=== PATIENT | female | born 1950 | race Caucasian/White ===

== ENCOUNTER 2020-12-23 17:43 | Inpatient (IN) | payer MEDICARE, OTHER ==
[~2020-12-23] VITALS: Ht 162.5 cm; Wt 49.5 kg
[2020-12-23] MEDS ORDERED: ANTACID SUSP 30 ML UDC (MYLANTA) PO PRN (22:00)
[2020-12-23] MEDS ORDERED: ACETAMINOPHEN 325 MG TABLET PO PRN (22:00)
[2020-12-23] MEDS ORDERED: polyethylene glycoL POWDER 17 GM (MIRALAX) PACK PO PRN (22:00)
[2020-12-23] MEDS ORDERED: ONDANSETRON 4 MG (ZOFRAN) ORAL DISSOLVE TAB PO PRN (22:00)
[2020-12-23] MEDS ORDERED: ONDANSETRON 4 MG/2 ML (SDV) Z0FRAN IV PRN (22:00)
[2020-12-23] MEDS ORDERED: MELATONIN 3 MG TABLET PO PRN (22:00)
[2020-12-23] MEDS ORDERED: BISACODYL 10 MG SUPP (DULCOLAX) PR PRN (22:00)
[2020-12-23 22:35] VITALS: BP 149/87
[2020-12-23] MEDS ORDERED: LEFL20TA18 PO (23:13)
[2020-12-23] MEDS ORDERED: OXCA600T10 PO (23:13)
[2020-12-23] MEDS ORDERED: [UNRECOGNIZED DRUG - CODE] PO (23:13)
[2020-12-23] MEDS ORDERED: LIOT5TAB10 PO (23:13)
[2020-12-23] MEDS ORDERED: LEVO100T7 PO (23:13)
[2020-12-23] MEDS ORDERED: POLY15DR27 OP (23:13)
[2020-12-23] MEDS ORDERED: HYDR200T46 PO (23:13)
[2020-12-23] MEDS ORDERED: ENOXAPARIN 30 MG/0.3 ML (LOVENOX) SYR SC SCH (23:30)
[2020-12-24 00:01] VITALS: BP 148/89
[2020-12-24 03:40] VITALS: BP 124/78
[2020-12-24 05:51] LABS: BASOPHILS % (AUTO) 0 % (0-10); EOSINOPHILS % (AUTO) 0 % (0-10); HEMATOCRIT 39 % (35-52); HEMOGLOBIN 12.9 g/dL (11.5-16.0); LYMPHOCYTES # (AUTO) 0.9 10^3/uL (1.0-4.0); LYMPHOCYTES % (AUTO) 18 % (12-44); MEAN CORPUSCULAR HEMOGLOBIN 32 pg (25-34); MEAN CORPUSCULAR HGB CONC 33 g/dL (32-36); MEAN CORPUSCULAR VOLUME 96 fL (80-99); MEAN PLATELET VOLUME 11.4 fL (9.0-12.2); MONOCYTES # (AUTO) 0.6 10^3/uL (0.0-1.0); MONOCYTES % (AUTO) 12 % (0-12); NEUTROPHILS # (AUTO) 3.4 10^3/uL (1.8-7.8); NEUTROPHILS % (AUTO) 69 % (42-75); PLATELET COUNT 155 10^3/uL (130-400); WHITE BLOOD COUNT 4.9 10^3/uL (4.3-11.0)
[2020-12-24 06:06] LABS: POTASSIUM 3.7 MMOL/L (3.6-5.0)
[2020-12-24 06:08] LABS: CALCIUM 9.3 MG/DL (8.5-10.1)
[2020-12-24 06:12] LABS: CREATININE SERUM 0.81 MG/DL (0.60-1.30)
[2020-12-24 07:28] VITALS: BP 130/84
[2020-12-24] MEDS: ASPIRIN 81 MG CHEW (CHILDREN'S ASA) PO SCH (08:34)
[2020-12-24] MEDS: LEVOTHYROXINE 100 MCG (LEVOTHROID) TAB PO SCH (08:34)
[2020-12-24] MEDS: SENNOSIDES 8.6 MG (SENOKOT) TAB PO SCH ×2 (08:34→21:21)
[2020-12-24] MEDS: DOCUSATE SODIUM 100 MG (COLACE) CAP PO SCH ×2 (08:34→21:21)
[2020-12-24] MEDS: HYDROXYCHLOROQUINE 200 MG (PLAQUENIL) TAB PO SCH (08:34)
[2020-12-24] MEDS: OXcarbazepine (TRILEPTAL) 300 MG TAB PO SCH ×2 (08:35→21:22)
[2020-12-24] MEDS ORDERED: PATIENT MAY USE OWN MED,SINGLE MED PO SCH (08:45)
[2020-12-24] MEDS: LIOTHYRONINE 5 MCG (CYTOMEL) TAB NON-FORMULARY PO SCH (09:27)
[2020-12-24] MEDS: PILOCARPINE 7.5 MG PO SCH ×3 (09:28→21:22)
[2020-12-24] MEDS: LEFLUNOMIDE 20 MG PO SCH (09:28)
--- NOTE | 2020-12-24 09:28 | History & Physical-Hospitalist ---
History of Present Illness HPI/Chief Complaint Rosemarie Hatch is a 70-year-old female with past medical history of rheumatoid arthritis, Sjogren's, chronic immunosuppression, seizure disorder, who presented with chest pain. She reports that she was having pressure in her chest. She was also having pain in her teeth which she thought was related to a sinus infection. She denies any nausea or vomiting. She denies any shortness of breath. She did have pleuritic chest pain. She says the pain was also worse with bending forward. She has not had any cough. She denies diaphoresis. She is currently chest pain-free. She denies fevers and chills. She denies a bdominal pain. She denies diarrhea. She denies dysuria. She does have a family history of coronary artery disease. Her father had several heart attacks. Her mother of a a heart attack at around 70 years old. Her sister of a heart attack at 80 years old. She has no personal history of coronary artery disease. Source: patient Exam Limitations: no limitations Date Seen 12/24/20 Time Seen by a Provider: 07:35 Attending Physician Norma Sy MD PCP No,Local Physician Referring Physician Date of Admission Dec 23, 2020 at 22:33 Home Medications & Allergies Home Medications Reviewed patient Home Medication Reconciliation performed by pharmacy medication reconciliations computer operations technician and/or nursing. Patients Allergies have been reviewed. Allergies Allergies Coded Allergies No Allergy Information Available (Unverified12/23/20) Past Gjfuwxh-Zdncug-Xlnepq Hx Patient Social History Tobacco Use?: No Substance use?: No Alcohol Use?: No Pt feels they are or have been: No Immunizations Up To Date Second COVID19 Vaccination Florencio: JULY Current Status Advance Directives: No Communicates: Verbally Primary Language: Croatian Preferred Spoken Language: Croatian Is interpretation needed?: No Sensory deficits: Vision impairment Implanted or Applied Medical D: None Family Medical History Heart Disease, CAD Over 55 Years Old Review of Systems Constitutional: no symptoms reported EENTM: other (Jaw pain) Respiratory: no symptoms reported Cardiovascular: chest pain Gastrointestinal: no symptoms reported Genitourinary: no symptoms reported Musculoskeletal: no symptoms reported Skin: no symptoms reported Psychiatric/Neurological: No Symptoms Reported Physical Exam Physical Exam Vital Signs Vital Signs - First Documented 12/24/20 00:01 Temp 36.2 Capillary Refill : Height, Weight, BMI Height: '" Weight: lbs. oz. kg; 18.74 BMI Method: General Appearance: No Apparent Distress, Thin HEENT: PERRL/EOMI, Pharynx Normal Neck: Normal Inspection, Supple Respiratory: Lungs Clear, Normal Breath Sounds, No Respiratory Distress Cardiovascular: Regular Rate, Rhythm, No Edema, No Murmur Gastrointestinal: Normal Bowel Sounds, Non Tender, Soft Extremity: Normal Inspection, Non Tender, No Pedal Edema Neurologic/Psychiatric: Alert, Oriented x3, No Motor/Sensory Deficits, Normal Mood/Affect Skin: Normal Color, Warm/Dry Lymphatic: No Adenopathy Results Results/Procedures Labs Laboratory Tests 12/24/20 05:04 Patient resulted labs reviewed. Imaging: Reviewed Imaging Report Assessment/Plan Admission Diagnosis Chest pain Admission Status: Observation Assessment and Plan Chest pain Elevated troponin Family history of coronary artery disease Elevated blood pressure No history of CAD or HTN Troponin elevated at outside facility Troponin elevated on arrival No further chest pain Given ASA Begin Metoprolol Lipid panel within normal limits Consider statin Cardiology consulted, appreciate assistance May need further evaluation with left heart catheterization, await recommendations NPO Rheumatoid arthritis Sjogren's syndrome Seizure disorder Continue home meds DVT prophylaxis: Lovenox Diagnosis/Problems Diagnosis/Problems (1) Chest pain Status: Acute (2) Family history of coronary artery disease (3) Elevated troponin Status: Acute (4) Elevated blood pressure reading Status: Acute (5) Rheumatoid arthritis Status: Chronic (6) Sjogrens syndrome Status: Chronic (7) Seizure disorder Status: Chronic NORMA SY MD Dec 24, 2020 09:28
--- NOTE | 2020-12-24 09:44 | Physical Therapy Evaluation ---
PT Evaluation-General Medical Diagnosis Admission Date Dec 23, 2020 at 22:33 Medical Diagnosis: Chest pain Onset Date: Dec 23, 2020 Therapy Diagnosis Therapy Diagnosis: Generalized Weakness Precautions Precautions/Isolations: Standard Precautions Referral Physician: Dr. Avalos Reason for Referral: Evaluation/Treatment Medical History Reviewed History: Yes Social History Home: [facility] Current Living Status: Significant Other Entry Into Home: Stairs With Railing PT Steps Into Home: 5 PT Steps Inside Home: 14 Prior Prior Level of Function SCALE: Activities may be completed with or without assistive devices. 5-Yfevtdoeme-ofopfus completes the activity by him/herself with no assistance from a helper. 5-Set-up or Clean-up Assistance-helper sets up or cleans up; patient completes activity. Charlotte assists only prior to or following the activity. 4-Supervision or Touching Assistance-helper provides verbal cues and/or touching/steadying and/or contact guard assistance as patient completes activity. Assistance may be provided throughout the activity or intermittently. 3-Partial/Moderate Assistance-helper does LESS THAN HALF the effort. Charlotte lifts, holds or supports trunk or limbs, but provides less than half the effort. 2-Substantial/Maximal Assistance-helper does MORE THAN HALF the effort. Charlotte lifts or holds trunk or limbs and provides more than half the effort. 2-Blwixmhbl-owrvfa does ALL the effort. Patient does none of the effort to complete the activity. Or, the assistance of 2 or more helpers is required for the patient to complete the activity. If activity was not attempted, code reason: 7-Patient Refused. 9-Not Applicable-not attempted and the patient did not perform the activity before the current illness, exacerbation or injury. 10-Not Attempted due to Environmental Limitations-(lack of equipment, weather restraints, etc.). 88-Not Attempted due to Medical Conditions or Safety Concerns. Bed Mobility: 6 Transfers (B,C,W/C): 6 Gait: 6 Stairs: 6 Wheelchair Mobility: 88 Indoor Mobility (Ambulation): Independent Prior Device Use: None PT Evaluation-Current Subjective Patient reports she had trouble breathing yesterday and went to Urgent Care. Reports the blood tests revealed high enzyme levels and she was admitted to the hospital. Patient currently in no pain, reports no symptoms, and has been ambulating to the bathroom without any difficulty or assistance. Objective Patient Orientation: Person, Place, Time, Situation Attachments: IV Integumentary/Posture Bowel Incontinence: No Bladder Incontinence: No Neuromuscular (Tone, Coordination, Reflexes) Coordination intact and symmetrical bilaterally to all tests. Sensory Sensation Right Lower Extremit: Intact Sensation Left Lower Extremity: Intact Transfers Roll Left to Right (QC): 6 Sit to Lying (QC): 6 Lying to Sitting/Side of Bed(Q: 6 Sit to Stand (QC): 6 Chair/Fjz-vg-Iuyey Xfer(QC): 6 Toilet Transfer (QC): 6 Car Transfer (QC): 88 Gait Does the Patient Walk?: Yes Mode of Locomotion: Walk Anticipated Mode of Locomotion: Walk Walk 10 feet (QC): 6 Walk 50 ft with 2 Turns(QC): 6 Walk 150 ft (QC): 5 Distance: 250 feet Gait Assistive Device: None Comments/Gait Description Patient ambulates 250 feet with no Assistive device, with Supervision, and no apparent gait deficit. She does not report any symptoms with gait, no shortness of breath, chest pain, nor dizziness. Wheelchair Training Does the Pt Use a Wheelchair?: No Wheel 50 ft with 2 turns (QC): 88 Wheel 150 ft (QC): 88 Type of Wheelchair: N/A Stairs #of Steps: 0 1 Step (curb) (QC): 88 4 Steps (QC): 88 12 Steps (QC): 88 Balance Sitting Static: Normal Sitting Dynamic: Normal Standing Static: Normal Standing Dynamic: Good Picking up an Object (QC): 6 Assessment/Needs Rehab Potential: Good Equipment Needs None at this time. PT Short Term Goals Short Term Goals No further PT warranted at this time. No goals established. PT Environmental Health And Safety Manager Goals Usp Goals No further PT warranted at this time. No goals established. PT Plan Problem List None at this time. Treatment/Plan Treatment Plan: Discontinue PT Treatment Duration: Feb 25, 2021 Frequency: No further PT warranted at this time. Safety Risks/Education Patient Education: Gait Training, Transfer Techniques, Safety Issues Teaching Recipient: Patient, Family Teaching Methods: Demonstration, Discussion Response to Teaching: Verbalize Understanding, Return Demonstration Discharge Recommendations Plan Patient will be D/C from PT treatment as she does not require skilled Physical Therapy intervention at this time. If new problems or limitations arise patient will be re-evaluated upon receipt of physician. Time/GCodes Time In: 910 Time Out: 945 Total Billed Treatment Time: 35 Total Billed Treatment Visit, PT Lashawn michelle JOHN A PT Dec 24, 2020 09:44
[2020-12-24 11:14] VITALS: BP 137/86
--- NOTE | 2020-12-24 11:26 | Occ Therapy Progress Note ---
Therapy Progress Note OT orders received and chart reviewed. OT visited with pt who indicates she is currently independent with ADLs and functional mobility. Per PT viviana, pt independent with functional mobility. Pt has no concerns with her ability to complete ADLs upon returning home and feels like she is at her PLOF. No skilled OT services indicated at this time, as pt is independent with ADLs and at PLOF. D/C from OT. 1, visit 1105 CHRIS CRUZ OT Dec 24, 2020 11:26
[2020-12-24] MEDS ORDERED: NITROGLYCERIN 0.4 MG SL TABS BTL 25'S SL ONE (11:56)
[2020-12-24] MEDS ORDERED: ENOXAPARIN 60 MG/0.6 ML (LOVENOX) SYR SC ONE (14:15)
[2020-12-24] MEDS ORDERED: CLOPIDOGREL 75 MG (PLAVIX) TABLET PO ONE (14:15)
[2020-12-24] MEDS ORDERED: ASPIRIN 81 MG CHEW (CHILDREN'S ASA) PO ONE (14:15)
[2020-12-24] MEDS ORDERED: oxyCODONE/APAP 5/325MG (PERCOCET 5) TABLET PO PRN (14:30)
[2020-12-24] MEDS ORDERED: ACETAMINOPHEN 325 MG TABLET PO PRN (14:30)
[2020-12-24] MEDS ORDERED: NITROGLYCERIN 2% OINT 1 GM UNIT DOSE PACKET TOP SCH (14:30)
--- NOTE | 2020-12-24 14:44 | Consultation-Cardiology ---
HPI-Cardiology Cardiology Consultation: Date of Consultation 12/24/20 Time Seen by a Provider: 14:10 Date of Admission Attending Physician Norma Avalos MD Admitting Physician No,Local Physician Consulting Physician LARISA PRESTON MD, MA, FACP, FACC, FSCAI, CCDS HPI: Chief Complaint: CC: Intermittent jaw discomfort HPI 70 yo woman with intermittent jaw discomfort for the past 2 days. Was seen at her local physician's, sent to ER at [facility], found to have mildly elevated troponin, sent to this hosp, has had some recurrence of symptoms here that have been relieved with s/l NTG. No shortness of breath or palp or syncope or swelling. No n/v/d Review of Systems-Cardiology Review of Systems Constitutional: No malaise, No tiredness, No weight loss, No weight gain Eyes: No vision change Ears/Nose/Throat: No ear discharge, No nasal drainage, No recent hearing loss Respiratory: As described under HPI Cardiovascular: As described under HPI Gastrointestinal: As described under HPI Genitourinary: No dysuria, No hematuria, No urine frequency changes Musculoskeletal: No back pain, No joint pain Skin: No rash, No ulcerations Psychiatric/Neurological: No seizure, No focal weakness, No syncope Hematologic: No bleeding abnormalities KBT-Xtimjy-Xtgvhf Hx Patient Social History Have you traveled recently?: No Alcohol Use?: No Pt feels they are or have been: No Past Medical History PMH As described under Assessment. Family Medical History Family History: Coronary artery disease Allergies and Home Medications Allergies Coded Allergies: No Allergy Information Available (Unverified , 12/23/20) Home Medications Hydroxychloroquine Sulfate 200 Mg Tablet, 200 MG PO DAILY, (Reported) Last Action: Continued Leflunomide 20 Mg Tablet, 20 MG PO DAILY, (Reported) Last Action: Converted Levothyroxine Sodium 100 Mcg Tablet, 100 MCG PO DAILY, (Reported) Last Action: Continued Liothyronine Sodium 5 Mcg Tablet, 5 MCG PO DAILY, (Reported) TAKE 1 TABLET BY MOUTH DAILY ON EMPTY STOMACH TOGETHER WITH LEVOTHYROXINE Last Action: Converted Oxcarbazepine 600 Mg Tablet, 600 MG PO BID, (Reported) Last Action: Converted Pilocarpine HCl 7.5 Mg Tablet, 7.5 MG PO TID, (Reported) Last Action: Converted Patient Home Medication List Home Medication List Reviewed: Yes Physical Exam-Cardiology Physical Exam Vital Signs/I&O 12/24/20 12/24/20 12/24/20 12/24/20 03:40 07:00 07:28 08:00 Temp 36.4 36.1 Pulse 87 89 72 Resp 16 17 B/P (MAP) 124/78 (93) 130/84 (99) Pulse Ox 97 97 O2 Delivery Room Air Room Air Room Air 12/24/20 12/24/20 11:14 12:53 Temp 36.8 Pulse 78 82 Resp 17 B/P (MAP) 137/86 (103) Pulse Ox 96 O2 Delivery Room Air Capillary Refill : Constitutional: AAO x 3, well-developed, other (thin-appearing) HEENT: PERRL, EOMI, hearing is well preserved; No xanthelasmas are seen Neck: carotid pulses are 2 + bilaterally, with good upstrokes Respiratory: No accessory muscle use; other (good bilateral air entry) Cardiovascular: regular rate-rhythm, S1 and S2, systolic murmur (soft ADITYA at card basee) Gastrointestinal: No tender; soft; No guarding, No rebound; audible bowel sounds Extremities: No clubbing, No cyanosis, No significant edema Neurologic/Psychiatric: oriented x 3, other (moves all limbs equally) Skin: No rash on exposed areas, No ulcerations on exposed areas Data Review Labs Laboratory Tests 12/23/20 22:51: Troponin I 0.181H 12/24/20 05:04: Troponin I 0.159H, White Blood Count 4.9, Red Blood Count 4.03, Hemoglobin 12.9, Hematocrit 39, Mean Corpuscular Volume 96, Mean Corpuscular Hemoglobin 32, Mean Corpuscular Hemoglobin Concent 33, Red Cell Distribution Width 13.4, Platelet Count 155, Mean Platelet Volume 11.4, Immature Granulocyte % (Auto) 0, Neutrophils (%) (Auto) 69, Lymphocytes (%) (Auto) 18, Monocytes (%) (Auto) 12, Eosinophils (%) (Auto) 0, Basophils (%) (Auto) 0, Neutrophils # (Auto) 3.4, Lymphocytes # (Auto) 0.9L, Monocytes # (Auto) 0.6, Eosinophils # (Auto) 0.0, Basophils # (Auto) 0.0, Immature Granulocyte # (Auto) 0.0, Sodium Level 141, Potassium Level 3.7, Chloride Level 116H, Carbon Dioxide Level 18L, Anion Gap 7, Blood Urea Nitrogen 15, Creatinine 0.81, Estimat Glomerular Filtration Rate 70, BUN/Creatinine Ratio 19, Glucose Level 109H, Calcium Level 9.3, Triglycerides Level 58, Cholesterol Level 160, LDL Cholesterol Direct 88, VLDL Cholesterol 12, HDL Cholesterol 57 Laboratory Tests 12/24/20 05:04 A/P-Cardiology Assessment/Admission Diagnosis Ac NSTEMI and unstable angina Discussion and Recomendations * Tele * DAPT * Beta-nimisha * Statin * Nitrates * Card cath recommended. We discussed the rationale, procedure, risks, benefits, potential complications and alternatives of card cath and possible ad hoc cor intervention. Questions answered. She understands and is willing to proceed. Scheduled for tomorrow am LARISA PRESTON MD FACP FAC CCDS Dec 24, 2020 14:44
[2020-12-24] MEDS: NITROGLYCERIN 0.4 MG SL TABS BTL 25'S SL PRN ×2 (15:33→15:48)
[2020-12-24 16:00] VITALS: BP 73/44
[2020-12-24] MEDS ORDERED: NS IV 500 ML 500 ML IV ONE (16:10)
[2020-12-24] MEDS ORDERED: NS IV 500 ML 500 ML ONE (16:15)
[2020-12-24] MEDS ORDERED: LIDOCAINE 1% INJ 20 ML 20 ML VIAL ONE (16:39)
[2020-12-24] MEDS ORDERED: HEParin (CATH LAB) 2,000 ML IV ONE (16:39)
[2020-12-24] MEDS ORDERED: fentaNYL INJ 100 MCG/2 ML AMP ONE ×2 (16:50→17:57)
[2020-12-24] MEDS ORDERED: MIDAZOLAM 5 MG/5 ML (VERSED) VIAL ONE (16:50)
[2020-12-24] MEDS ORDERED: methylPREDNISolone 125 MG (Solu-MEDROL) VIAL ONE (16:50)
[2020-12-24] MEDS ORDERED: diphenhydrAMINE 50 MG/ML INJ (BENADRYL) ONE (16:50)
[2020-12-24] MEDS: NS IV 1000 ML 1,000 ML IV SCH ×3 (17:14→23:00)
[2020-12-24] MEDS ORDERED: HEParin 1000 UNIT/ML (10ML VIAL) FOR BOLUS ONE (17:22)
[2020-12-24] MEDS ORDERED: EPTIFIBATIDE BOLUS 20 ML IV ONE (17:26)
[2020-12-24] MEDS ORDERED: NITRO DRIP 25000 MCG/D5W 250 ML IV ONE (17:34)
[2020-12-24] MEDS ORDERED: CLOPIDOGREL 300 MG (PLAVIX) TABLET PO ONE (17:45)
[2020-12-24] MEDS ORDERED: PATIENT MAY USE OWN MEDS, ALL PO SCH (18:00)
[2020-12-24] MEDS ORDERED: ATORVASTATIN 10 MG TABLET PO SCH (21:00)
[2020-12-24] MEDS ORDERED: ENOXAPARIN 60 MG/0.6 ML (LOVENOX) SYR SC SCH (22:00)
[2020-12-25] MEDS: NS IV 1000 ML 1,000 ML IV SCH ×3 (02:22→14:39)
[2020-12-25] MEDS: LEVOTHYROXINE 100 MCG (LEVOTHROID) TAB PO SCH (05:46)
[2020-12-25] MEDS: LIOTHYRONINE 5 MCG (CYTOMEL) TAB NON-FORMULARY PO SCH (05:46)
[2020-12-25] MEDS ORDERED: meTOproloL SUCCINATE 50 MG (TOPROL XL) TAB PO SCH (09:00)
[2020-12-25] MEDS ORDERED: CLOPIDOGREL 75 MG (PLAVIX) TABLET PO SCH (09:00)
--- NOTE | 2020-12-25 09:08 | Tele-ICU Consult ---
Progress Note video rounds completed 70 y/o female admitted with atypical angina and mildly elevated troponins Has been hemodynamically normal Cardiology onconsult Going for cardiac cath today Focused Exam Height, Weight, BMI Height: '" Weight: lbs. oz. kg; 18.74 BMI Method: MICHELLE CHAUDHARI MD Dec 25, 2020 09:08
[2020-12-25] MEDS: SENNOSIDES 8.6 MG (SENOKOT) TAB PO SCH (09:09)
[2020-12-25] MEDS: HYDROXYCHLOROQUINE 200 MG (PLAQUENIL) TAB PO SCH (09:10)
[2020-12-25] MEDS: ASPIRIN 81 MG CHEW (CHILDREN'S ASA) PO SCH (09:10)
[2020-12-25] MEDS: DOCUSATE SODIUM 100 MG (COLACE) CAP PO SCH (09:10)
[2020-12-25] MEDS: LEFLUNOMIDE 20 MG PO SCH (09:12)
[2020-12-25] MEDS: PILOCARPINE 7.5 MG PO SCH ×2 (09:12→12:32)
[2020-12-25] MEDS: OXcarbazepine (TRILEPTAL) 300 MG TAB PO SCH (09:20)
[2020-12-25 09:40] LABS: EOSINOPHILS % (AUTO) 0 % (0-10)
[2020-12-25 09:42] LABS: BASOPHILS % (AUTO) 0 % (0-10); HEMATOCRIT 30 % (35-52); HEMOGLOBIN 9.8 g/dL (11.5-16.0); LYMPHOCYTES # (AUTO) 1.4 10^3/uL (1.0-4.0); LYMPHOCYTES % (AUTO) 24 % (12-44); MEAN CORPUSCULAR HEMOGLOBIN 32 pg (25-34); MEAN CORPUSCULAR HGB CONC 33 g/dL (32-36); MEAN CORPUSCULAR VOLUME 99 fL (80-99); MEAN PLATELET VOLUME 11.2 fL (9.0-12.2); MONOCYTES # (AUTO) 0.6 10^3/uL (0.0-1.0); MONOCYTES % (AUTO) 10 % (0-12); NEUTROPHILS # (AUTO) 3.9 10^3/uL (1.8-7.8); NEUTROPHILS % (AUTO) 66 % (42-75); PLATELET COUNT 135 10^3/uL (130-400); WHITE BLOOD COUNT 5.9 10^3/uL (4.3-11.0)
[2020-12-25 09:54] LABS: POTASSIUM 3.8 MMOL/L (3.6-5.0)
[2020-12-25 09:56] LABS: CALCIUM 8.1 MG/DL (8.5-10.1)
[2020-12-25 10:00] LABS: CREATININE SERUM 0.79 MG/DL (0.60-1.30)
--- NOTE | 2020-12-25 15:54 | Progress Note - Cardiology ---
Cardiology SOAP Progress Note Subjective: Feels well No cp or palp or syncope or shortness of breath No groin swelling or discomfort No leg discomfort or change in color Objective: I&O/Vital Signs 12/25/20 12/25/20 12/25/20 12/25/20 04:00 07:00 08:00 08:00 Pulse 84 83 81 Resp 18 17 B/P (MAP) 100/66 (77) 111/69 (83) Pulse Ox 97 97 O2 Delivery Room Air Room Air Room Air 12/25/20 12/25/20 12/25/20 12/25/20 08:03 11:46 12:00 12:59 Temp 36.9 36.9 Pulse 82 81 Resp 13 B/P (MAP) 99/64 (76) Pulse Ox 97 O2 Delivery Room Air 12/25/20 00:00 Intake Total 1050 ml Output Total 400 ml Balance 650 ml Swelling: mild amount of swelling, without swelling Bruising: mild bruising Constitutional: AAO x 3, well-developed, other (thin-appearing) Respiratory: No accessory muscle use; other (good bilateral air entry) Cardiovascular: regular rate-rhythm, S1 and S2, systolic murmur (soft ADITYA at card basee) Gastrointestional: No tender; soft; No guarding, No rebound; audible bowel sounds Extremities: No clubbing, No cyanosis, No significant edema Neurologic/Psychiatric: oriented x 3, other (moves all limbs equally) Skin: No rash on exposed areas, No ulcerations on exposed areas Results/Procedures: Labs Laboratory Tests 12/25/20 09:30: White Blood Count 5.9, Red Blood Count 3.05L, Hemoglobin 9.8#L, Hematocrit 30L, Mean Corpuscular Volume 99, Mean Corpuscular Hemoglobin 32, Mean Corpuscular Hemoglobin Concent 33, Red Cell Distribution Width 13.9, Platelet Count 135, Mean Platelet Volume 11.2, Immature Granulocyte % (Auto) 0, Neutrophils (%) (Auto) 66, Lymphocytes (%) (Auto) 24, Monocytes (%) (Auto) 10, Eosinophils (%) (Auto) 0, Basophils (%) (Auto) 0, Neutrophils # (Auto) 3.9, Lymphocytes # (Auto) 1.4, Monocytes # (Auto) 0.6, Eosinophils # (Auto) 0.0, Basophils # (Auto) 0.0, Immature Granulocyte # (Auto) 0.0, Percent Immature Platelet Fraction 5.3, Sodium Level 142, Potassium Level 3.8, Chloride Level 117H, Carbon Dioxide Level 18L, Anion Gap 7, Blood Urea Nitrogen 13, Creatinine 0.79, Estimat Glomerular Filtration Rate 72, BUN/Creatinine Ratio 16, Glucose Level 90, Calcium Level 8.1L Laboratory Tests 12/24/20 05:04 12/25/20 09:30 A/P: Assessment: Ac NSTEMI and unstable angina - Card cath on 12/24/20: 70% prox LAD stented with Rahel 3.5 x 12 stent; mild plaque LCX; 40% stenosis mid-RCA; severe disease of some; very small caliber branches of LAD and LCx that are not amenable to intervention; LVEF 65-70%; LVEDP 22 mmHg Hypertension controlled Plan: * We reviewed and discussed her cath findings and interventions undertaken. Advised med compliance and outpt f/u * DAPT * Beta-nimisha * Statin LARISA PRESTON MD FACP FAC CCDS Dec 25, 2020 15:54
[2020-12-25] MEDS ORDERED: METO50TA7 PO (16:01)
[2020-12-25] MEDS ORDERED: ATOR10TA66 PO (16:01)
[2020-12-25] MEDS ORDERED: CLOP75TA28 PO (16:01)
[2020-12-25] MEDS ORDERED: ASPI81TA64 PO (16:01)
--- NOTE | 2020-12-25 16:02 | Discharge Inst-Post CATH ---
Discharge Inst-CATH/EP Post Cardiac Cath/EP D/C Inst Follow Up/Plan F/u with Dr Daley in 2 weeks ACTIVITY * Go Home directly and rest. * Limit activity of the leg (or wrist if it was used) for 7 days including aerobics, swimming, jogging, bicycling, etc. * Restrict stair-climbing for 7 days if possible, if not, climb up with your n on-cath leg, then bring together on the same step. * Avoid lifting, pushing, pulling or excessive movement of the affected ex tremity for 7 days. * Customary sexual activity may be resumed after 2 days-use caution not to use a position that strains or causes pain to the affected extremity. * No driving for 24 hours. * NO SMOKING. * Avoid straining for bowel movements for 7 days. * Gentle walking on level ground is allowed. * Returning to work will depend on the type of procedure and the results. Your doctor will discuss this with you. CALL YOUR DOCTOR FOR ANY OF THE FOLLOWING: *If bleeding from the puncture site occurs- Apply gentle pressure to site with clean cloth and call your doctor or EMS. * If a knot or lump forms under the skin, increases in size, or causes pain. * If bruising appears to be worsening or moving further down your leg instead of disappearing. * Temperature above 101 F. CARE OF YOUR GROIN INCISION; * Bruising or purple discoloration of the skin near the puncture site is common. * You may shower only, no bathtub bathing for 5 days. Be careful to avoid slipping as your leg may feel stiff. * If a closure device was used on your femoral artery, please see the attached guide regarding care of the device and your leg. * Leave dressing on FOR 24 hours. CARE OF YOUR WRIST INCISION; * Bruising or purple discoloration of the skin near the puncture site is common. * You may shower. * DO NOT submerge wrist. * Leave dressing on FOR 24 hours. LARISA DALEY MD [facility] CCDS Dec 25, 2020 16:02
--- NOTE | 2020-12-26 16:55 | CARDIAC CATHETERIZATION ---
DATE OF SERVICE: 12/24/2020 CARDIAC CATHETERIZATION AND CORONARY INTERVENTION REPORT The patient is a 70-year-old lady, who was admitted with acute non-ST elevation myocardial infarction and continued to have unstable angina. Cardiac catheterization was carried out after having obtained an informed consent for cardiac catheterization and ad hoc coronary intervention, if needed. DESCRIPTION OF PROCEDURE: She was brought to the cardiac catheterization laboratory. Right groin was prepared and draped in the usual sterile fashion. Lidocaine 1% was used for local anesthesia. Modified Seldinger technique was used to advance a 6-Samoan sheath into the right femoral artery. A 6-Samoan JL4 catheter was used for left coronary angiography. A 6-Samoan JR4 catheter was used for right coronary angiography. A 6-Samoan pigtail catheter was used for left heart catheterization and left ventricular angiography. PERCUTANEOUS INTERVENTION OF THE LEFT ANTERIOR DESCENDING: The left anterior descending was exhibiting 70% proximal stenosis. We used a 6-Samoan JL4 guide catheter to engage the left coronary artery and advanced a BMW wire across the lesion and the tip was placed in the distal vessel. We advanced Rahel 3.0 x 12 mm stent to the lesion. It was carefully positioned to cover the entire lesion and the stent was deployed at 20 atmospheres. Subsequent angiography revealed 0% residual stenosis and flow throughout the vessel is normal. The patient tolerated the procedure well. Angiography of the right femoral artery was carried out through the sheath and Mynx was used to achieve hemostasis. HEMODYNAMICS: Left ventricular end-diastolic pressure following coronary angiography was 22 mmHg. There is no significant pressure gradient on pullback across the aortic valve. Ascending aortic pressure was 104/66 with a mean of 55 mmHg. LEFT VENTRICULAR ANGIOGRAPHY: Left ventricular angiography was carried out in the right anterior oblique projection. Global left ventricular systolic function with normal. No regional wall motion abnormalities seen. Left ventricular ejection fraction is approximately 65% to 70%. CORONARY ANGIOGRAPHY: Left main coronary artery is free of significant disease. Left anterior descending artery has 70% proximal stenosis. This was successfully stented with a Rahel 3.0 x 12 mm stent that was deployed at 20 atmospheres. Very small caliber diagonal branches have severe ostial and proximal disease, but are not amenable to intervention. There also appears to be severe disease in some small caliber branch vessels of the left circumflex, which were not amenable to intervention. The right coronary artery is dominant. It has approximately 40% mid vessel stenosis. CONCLUSIONS: 1. Coronary artery disease primarily consisting of 70% proximal stenosis. Left anterior descending that was successfully stented with Rahel 3.0 x 12 mm stent that was deployed at 20 atmospheres. The right coronary artery has 40% mid vessel stenosis. Small caliber branch vessels within the left anterior descending and left circumflex systems have severe ostial, proximal disease, but are not amenable to intervention on account of small size. 2. Elevated left ventricular end-diastolic pressure (22 mmHg). 3. Normal to hyperdynamic left ventricular systolic function with an ejection fraction of 65% to 70%. Job ID: [id number] DocumentID: [id number] Dictated Date: 12/24/2020 18:05:21 American Board Certified Orthotist Date: 12/24/2020 20:59:43 Dictated By: LARISA PRESTON MD, MA, FACP, FACC,
== END 2020-12-25 16:57 | disposition home or self-care (01) | DRG 247 ==
LOC: EDSTATUS 17:43 → UNDOADMOB 22:33 → 4TH 22:33 → ICU 12-24 18:15 → UNDODISOB 12-25 16:57
PROVIDERS: ADMIT Internal Medicine; ATTEND Internal Medicine
PROC: 027034Z Dilation of Coronary Artery, One Artery with Drug-eluting Intraluminal Device, Percutaneous Approach (ICD-10-PCS; principal; 2020-12-24)
PROC: 4A023N7 Measurement of Cardiac Sampling and Pressure, Left Heart, Percutaneous Approach (ICD-10-PCS; 2020-12-24)
PROC: B2111ZZ Fluoroscopy of Multiple Coronary Arteries using Low Osmolar Contrast (ICD-10-PCS; 2020-12-24)
PROC: B2151ZZ Fluoroscopy of Left Heart using Low Osmolar Contrast (ICD-10-PCS; 2020-12-24)
DX: I21.4 Non-ST elevation (NSTEMI) myocardial infarction (principal); I25.110 Atherosclerotic heart disease of native coronary artery with unstable angina pectoris; M06.9 Rheumatoid arthritis, unspecified; M35.00 Sjogren syndrome, unspecified; G40.909 Epilepsy, unspecified, not intractable, without status epilepticus; H54.7 Unspecified visual loss; Z82.49 Family history of ischemic heart disease and other diseases of the circulatory system
CPT/HCPCS: 36415; 80048; 80061; 84484; 85025; 87081; 93005; 93306; 93458

== ENCOUNTER → 2023-05-09 | Outpatient (CLI) | payer MEDICARE, OTHER ==
[~2023-05-09] MED LIST: ASPI81TA64 PO; ATOR10TA66 PO; CLOP75TA28 PO; HYDR200T71 PO; LEFL20TA18 PO; LEVO100T7 PO; LIOT5TAB10 PO; METO50TA7 PO; OXCA600T10 PO; POLY15DR27 OP; [UNRECOGNIZED DRUG - CODE] PO
== END ==
LOC: CARD 09:29
PROVIDERS: ATTEND Internal Medicine Cardiovascular Disease
DX: I08.3 Combined rheumatic disorders of mitral, aortic and tricuspid valves (principal)
CPT/HCPCS: 93306